=== PATIENT | female | born 1955 | race African-American/Black ===

== ENCOUNTER 2021-04-01 12:36 | Inpatient (IN) | payer OTHER ==
[~2021-04-01] VITALS: Ht 172.7 cm; Wt 86.9 kg
[2021-04-01 12:23] VITALS: BP 115/66
[~2021-04-01 12:36] MED LIST: ASPIRIN ADULT L81 M2 PO; COREG25 MG PO; COZAAR100 MG PO; DONEPEZIL HYDROC5 MG PO; HYDROCHLOROTHIA50 M1 PO; KLOR-CON M2020 ME1 PO; LIPITOR40 MG PO; RISPERDAL1 M1 PO
[2021-04-01 16:00] VITALS: BP 123/62
[2021-04-01] MEDS ORDERED: ZYPREXA7.5 M1 PO (16:20)
[2021-04-01] MEDS ORDERED: MELATONIN5 M1 PO (16:21)
[2021-04-01] MEDS ORDERED: EXELON1 EAC1 T (16:21)
[2021-04-01] MEDS ORDERED: NAMENDA10 MG PO (16:22)
[2021-04-01] MEDS ORDERED: VISTARIL25 MG PO (16:22)
[2021-04-01] MEDS ORDERED: NAMENDA5 M1 PO (16:22)
[2021-04-01 20:00] VITALS: BP 125/78
[2021-04-02] VITALS: BP 120/60
[2021-04-02 06:38] LABS: BASO % 0.2 % (0.0-1.0); EOS % 0.2 % (1.0-4.0); HEMATOCRIT 36.4 % (37.0-47.0); LYMPH # 1.1 10*3/uL (1.3-4.4); LYMPH % 18.4 % (27.0-41.0); MEAN CELL VOLUME 88.3 fl (81.0-99.0); MEAN CORPUSCULAR HGB 29.4 pg (27.0-31.0); MEAN CORPUSCULAR HGB CONC 33.2 g/dl (33.0-37.0); MEAN PLATELET VOLUME 10.4 fl (9.6-12.3); MONO # 0.8 10*3/uL (0.1-1.0); MONO % 13.2 % (3.0-9.0); NEUT # 3.9 10*3/uL (2.3-7.9); NEUT % 67.5 % (47.0-73.0); PLATELET COUNT AUTOMATED 169 10*3/uL (130-400); RED BLOOD COUNT 4.12 10*6/uL (4.10-5.10); RED CELL DISTRI WIDTH 13.5 % (0-14.5); WHITE BLOOD COUNT 5.8 10*3/uL (4.8-10.8)
[2021-04-02 06:57] LABS: ALBUMIN 2.6 gm/dl (3.1-4.5); CREATININE 1.33 mg/dL (0.55-1.02); POTASSIUM 3.1 mmol/L (3.5-5.1); TOTAL PROTEIN 6.3 gm/dL (6.4-8.2)
[2021-04-02 08:00] VITALS: BP 143/85
[2021-04-02 12:00] VITALS: BP 149/98
[2021-04-02 20:00] VITALS: BP 151/90
[2021-04-03] VITALS: BP 141/90
[2021-04-03 06:36] LABS: BASO % 0.4 % (0.0-1.0); EOS % 0.4 % (1.0-4.0); HEMATOCRIT 34.6 % (37.0-47.0); LYMPH # 1.5 10*3/uL (1.3-4.4); LYMPH % 27.1 % (27.0-41.0); MEAN CELL VOLUME 85.9 fl (81.0-99.0); MEAN CORPUSCULAR HGB CONC 33.8 g/dl (33.0-37.0); MEAN PLATELET VOLUME 9.7 fl (9.6-12.3); MONO # 0.7 10*3/uL (0.1-1.0); MONO % 13.3 % (3.0-9.0); NEUT # 3.2 10*3/uL (2.3-7.9); NEUT % 58.4 % (47.0-73.0); PLATELET COUNT AUTOMATED 161 10*3/uL (130-400); RED BLOOD COUNT 4.03 10*6/uL (4.10-5.10); RED CELL DISTRI WIDTH 13.2 % (0-14.5); WHITE BLOOD COUNT 5.4 10*3/uL (4.8-10.8)
[2021-04-03 06:59] LABS: CHLORIDE 102 mmol/L (98-107); CREATININE 1.07 mg/dL (0.55-1.02); POTASSIUM 2.9 mmol/L (3.5-5.1); SODIUM 138 mmol/L (136-145)
[2021-04-03 07:00] LABS: BUN 15 mg/dl (7-24)
[2021-04-03 08:00] VITALS: BP 132/83
[2021-04-03 12:00] VITALS: BP 126/83
[2021-04-03 16:00] VITALS: BP 125/82
[2021-04-03 20:00] VITALS: BP 139/106
[2021-04-04 05:00] VITALS: BP 117/71
[2021-04-04 07:02] LABS: BUN 13 mg/dl (7-24); CHLORIDE 107 mmol/L (98-107); CREATININE 0.94 mg/dL (0.55-1.02); SODIUM 140 mmol/L (136-145)
[2021-04-04 12:00] VITALS: BP 137/76
[2021-04-04] MEDS ORDERED: LIPITOR40 MG PO (14:16)
[2021-04-04] MEDS ORDERED: EXELON1 EAC1 T (14:16)
[2021-04-04] MEDS ORDERED: VISTARIL25 MG PO (14:16)
[2021-04-04] MEDS ORDERED: ZYPREXA7.5 M1 PO (14:16)
[2021-04-04] MEDS ORDERED: NAMENDA5 M1 PO (14:16)
[2021-04-04] MEDS ORDERED: NAMENDA10 MG PO (14:16)
== END 2021-04-04 13:10 | disposition home or self-care (01) | DRG 682 ==
LOC: 5E 12:36
PROVIDERS: Internal Medicine; Physical Therapist; ADMIT Family Medicine; ATTEND Family Medicine
DX: N17.0 Acute kidney failure with tubular necrosis (principal); E43 Unspecified severe protein-calorie malnutrition; E87.2 Acidosis; F23 Brief psychotic disorder; K57.30 Diverticulosis of large intestine without perforation or abscess without bleeding; R10.31 Right lower quadrant pain; R07.89 Other chest pain; E87.6 Hypokalemia; R73.03 Prediabetes; R73.9 Hyperglycemia, unspecified; K59.00 Constipation, unspecified; R74.01 Elevation of levels of liver transaminase levels; F03.90 Unspecified dementia, unspecified severity, without behavioral disturbance, psychotic disturbance, mood disturbance, and anxiety; Z79.82 Long term (current) use of aspirin; Z79.899 Other long term (current) drug therapy; Z68.29 Body mass index [BMI] 29.0-29.9, adult

== ENCOUNTER 2021-08-07 11:32 | Inpatient (IN) | payer MEDICARE ==
[2021-08-07] VITALS (7 sets, daily range): BP systolic 118–184; BP diastolic 83–104
[~2021-08-07] VITALS: Ht 162.6 cm; Wt 52.6 kg
[~2021-08-07 11:32] MED LIST changes: +EXELON1 EAC1 T; +MELATONIN5 M1 PO; +NAMENDA10 MG PO; +NAMENDA5 M1 PO; +VISTARIL25 MG PO; +ZYPREXA7.5 M1 PO
[2021-08-07 11:58] LABS: BASO % 0.4 % (0.0-1.0); EOS % 0.5 % (1.0-4.0); HEMATOCRIT 41.3 % (37.0-47.0); LYMPH % 12.8 % (27.0-41.0); MEAN CELL VOLUME 88.4 fl (81.0-99.0); MEAN CORPUSCULAR HGB CONC 33.9 g/dl (33.0-37.0); MEAN PLATELET VOLUME 9.6 fl (9.6-12.3); MONO # 0.8 10*3/uL (0.1-1.0); MONO % 10.9 % (3.0-9.0); NEUT # 5.6 10*3/uL (2.3-7.9); NEUT % 74.7 % (47.0-73.0); PLATELET COUNT AUTOMATED 164 10*3/uL (130-400); RED BLOOD COUNT 4.67 10*6/uL (4.10-5.10); RED CELL DISTRI WIDTH 15.7 % (0-14.5); WHITE BLOOD COUNT 7.5 10*3/uL (4.8-10.8)
[2021-08-07 12:13] LABS: ALKALINE PHOSPHATASE 86 U/L (45-117); BUN 17 mg/dl (7-24); CHLORIDE 104 mmol/L (98-107); CREATININE 0.63 mg/dL (0.55-1.02); SGOT/AST 95 IU/L (3-35); SGPT/ALT 130 U/L (12-78); SODIUM 142 mmol/L (136-145)
[2021-08-07 12:56] LABS: BILIRUBIN 1+ (Negative); BLOOD Trace-Intact (Negative); CLARITY Cloudy (Clear); COLOR Dark Yellow (Yellow); GLUCOSE Negative (Negative); KETONE 2+ (Negative); LEUKO ESTERASE Trace (Negative); NITRITE Negative (Negative)
[2021-08-07 13:16] LABS: BACTERIA 3+; EPITHELIAL CELLS 0-2
[2021-08-07 13:17] LABS: MUCOUS TRACE
[2021-08-08] VITALS: BP 155/86
[2021-08-08 06:16] LABS: BASO % 0.3 % (0.0-1.0); EOS # 0.1 10*3/uL (0.0-0.4); EOS % 0.8 % (1.0-4.0); HEMATOCRIT 37.1 % (37.0-47.0); LYMPH # 1.1 10*3/uL (1.3-4.4); LYMPH % 15.4 % (27.0-41.0); MEAN CELL VOLUME 87.5 fl (81.0-99.0); MEAN CORPUSCULAR HGB 30.7 pg (27.0-31.0); MONO # 0.9 10*3/uL (0.1-1.0); MONO % 12.1 % (3.0-9.0); NEUT # 5.1 10*3/uL (2.3-7.9); NEUT % 70.7 % (47.0-73.0); NUCLEATED RED BLOOD CELL 0.3 % (0.0-0.0); PLATELET COUNT AUTOMATED 148 10*3/uL (130-400); RED BLOOD COUNT 4.24 10*6/uL (4.10-5.10); RED CELL DISTRI WIDTH 15.8 % (0-14.5); WHITE BLOOD COUNT 7.2 10*3/uL (4.8-10.8)
[2021-08-08 06:29] LABS: CHLORIDE 109 mmol/L (98-107); SODIUM 142 mmol/L (136-145)
[2021-08-08 06:41] LABS: ALKALINE PHOSPHATASE 77 U/L (45-117); BUN 17 mg/dl (7-24); CHOLESTEROL 215 mg/dL (<200); CREATININE 0.55 mg/dL (0.55-1.02); FREE T4 1.95 ng/dl (0.76-1.46); LDL CHOLESTEROL 147 mg/dL (9-159); SGOT/AST 78 IU/L (3-35); SGPT/ALT 125 U/L (12-78); TOTAL PROTEIN 6.2 gm/dL (6.4-8.2); TRIGLYCERIDES 99 mg/dl (<150)
[2021-08-08 08:21] LABS: VITAMIN D, 25-HYDROXY 42.5 ng/mL (30-100)
[2021-08-08 12:00] VITALS: BP 121/100
[2021-08-08 16:00] VITALS: BP 119/76
[2021-08-08 20:00] VITALS: BP 141/92
[2021-08-09] VITALS: BP 148/92
[2021-08-09 07:26] LABS: ALKALINE PHOSPHATASE 74 U/L (45-117); BUN 17 mg/dl (7-24); CHLORIDE 114 mmol/L (98-107); CREATININE 0.56 mg/dL (0.55-1.02); POTASSIUM 3.2 mmol/L (3.5-5.1); SGOT/AST 98 IU/L (3-35); SGPT/ALT 166 U/L (12-78); SODIUM 145 mmol/L (136-145); TOTAL PROTEIN 5.8 gm/dL (6.4-8.2)
[2021-08-09 12:00] VITALS: BP 94/54
[2021-08-09 16:00] VITALS: BP 99/68
[2021-08-09 20:00] VITALS: BP 155/96
[2021-08-10] VITALS: BP 140/94
[2021-08-10 08:00] VITALS: BP 167/98
[2021-08-10 12:00] VITALS: BP 120/77
[2021-08-10 16:00] VITALS: BP 122/78; BP 140/89
[2021-08-10 20:00] VITALS: BP 140/91
[2021-08-11] VITALS: BP 137/93
[2021-08-11 06:19] LABS: BUN 22 mg/dl (7-24); CHLORIDE 118 mmol/L (98-107); CREATININE 0.53 mg/dL (0.55-1.02); SGOT/AST 74 IU/L (3-35); SGPT/ALT 156 U/L (12-78)
[2021-08-11 06:22] LABS: ALKALINE PHOSPHATASE 73 U/L (45-117); TOTAL PROTEIN 5.8 gm/dL (6.4-8.2)
[2021-08-11 06:33] LABS: SODIUM 147 mmol/L (136-145)
[2021-08-11 06:37] LABS: POTASSIUM 4.2 mmol/L (3.5-5.1)
[2021-08-11 08:00] VITALS: BP 178/108
[2021-08-11 09:00] VITALS: BP 164/72
[2021-08-11 12:00] VITALS: BP 135/98
== END 2021-08-11 15:44 | DRG 689 ==
LOC: ED 11:32 → EDHOLD 13:24 → 4E 13:24
PROVIDERS: Hospitalist; Internal Medicine; Registered Nurse; ADMIT Family Medicine; ATTEND Family Medicine
DX: N30.01 Acute cystitis with hematuria (principal); G93.41 Metabolic encephalopathy; E43 Unspecified severe protein-calorie malnutrition; F02.81 Dementia in other diseases classified elsewhere, unspecified severity, with behavioral disturbance; Z68.1 Body mass index [BMI] 19.9 or less, adult; Z20.822 Contact with and (suspected) exposure to COVID-19; Z66 Do not resuscitate; Z51.5 Encounter for palliative care; E87.6 Hypokalemia; F01.50 Vascular dementia, unspecified severity, without behavioral disturbance, psychotic disturbance, mood disturbance, and anxiety; R74.01 Elevation of levels of liver transaminase levels; E80.6 Other disorders of bilirubin metabolism; G30.0 Alzheimer's disease with early onset; I10 Essential (primary) hypertension; R62.7 Adult failure to thrive; B96.89 Other specified bacterial agents as the cause of diseases classified elsewhere; Z86.73 Personal history of transient ischemic attack (TIA), and cerebral infarction without residual deficits; Z79.82 Long term (current) use of aspirin; Z79.899 Other long term (current) drug therapy